=== PATIENT | male | born 2000 | race Caucasian/White ===

== ENCOUNTER → 2024-11-14 07:02 | Outpatient (REF) | payer OTHER, SELFPAY | LOC: HWRAD 07:02 | PROVIDERS: ATTENDING PHYSICIAN Nurse Practitioner Adult Health | DX: R74.8 Abnormal levels of other serum enzymes (principal) | CPT/HCPCS: 76700 ==

== ENCOUNTER → 2024-11-21 06:44 | Outpatient (REF) | payer OTHER, SELFPAY | LOC: MRI 3T 06:44 | PROVIDERS: ATTENDING PHYSICIAN Nurse Practitioner Adult Health | DX: N39.44 Nocturnal enuresis (principal); Q07.00 Arnold-Chiari syndrome without spina bifida or hydrocephalus | CPT/HCPCS: 70551; 72141 ==

== ENCOUNTER 2024-12-10 18:33 | Emergency (ER) | payer OTHER, SELFPAY ==
[2024-12-10 18:36] VITALS: BP 159/104
[2024-12-10 18:52] LABS: % Basophils 0.1 % (0-2); % Eosinophils 0.3 % (0-6); % Immature Granulocytes 0.4 % (0-0.5); % Lymphocytes 18.5 % (20.5-51.1); % Monocytes 8.1 % (1.7-9.3); % Neutrophils 72.6 % (42.2-75.2); Absolute Lymphocytes 1.3 10^3/uL (1.2-3.4); Absolute Monocytes 0.6 10^3/uL (0.1-0.6); Absolute Neutrophils 5.2 10^3/uL (1.4-6.5); Hematocrit 41.3 % (39.0-52.0); Hemoglobin 14.7 g/dL (13.0-18.0); Mean Corp Hgb Conc. 35.6 g/dL (33.0-37.0); Mean Corpuscular Hgb 33.9 pg (27.0-31.0); Mean Corpuscular Volume 95.4 fL (80.0-94.0); Mean Platelet Volume 10.9 fL (7.4-10.4); Nucleated Red Blood Cells % 0 % (-); Platelet Count 182 10^3/uL (130-400); Red Blood Cell Count 4.33 10^6/uL (4.70-6.10); Red Cell Dist. Width 12.5 % (11.5-14.5); White Blood Cell Count 7.2 10^3/uL (4.8-10.8)
[2024-12-10 19:08] LABS: ALT (SGPT) 59 U/L (0-50); AST (SGOT) 56 U/L (17-59); Albumin 5.1 g/dl (3.5-5.0); Alkaline Phosphatase 48 U/L (38-126); Blood Urea Nitrogen 14 mg/dl (9-20); Calcium 10.7 mg/dl (8.4-10.2); Carbon Dioxide 20 mmol/L (22-30); Chloride 108 mmol/L (98-107); Glucose 98 mg/dl (70-99); Potassium 4.4 mmol/L (3.5-5.1); Sodium 138 mmol/L (135-145); Total Bilirubin 1.4 mg/dl (0.2-1.3); Total Protein 7.9 g/dl (6.3-8.2); eGFR > 60.00
[2024-12-10 22:48] VITALS: BP 150/89
[2024-12-10 23:00] VITALS: BP 141/76
--- NOTE | 2024-12-10 23:18 | ED.GENMED ---
History of Present Illness
General
Chief Complaint: Blood Pressure Problem
Source: patient
Exam Limitations: none
Time Seen by Provider: 12/10/24 22:59
Nursing documentation reviewed up to this point in time: agreed with
History of Present Illness
History of Present Illness:
Note:
CHIEF COMPLAINT(S)
Shaking episode with elevated blood pressure
HISTORY OF PRESENT ILLNESS
The patient is a 24-year-old male with no pmh who presented after experiencing an episode of shaking. 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 The episode consisted of shaking that lasted approximately one
and a half hours in both of his upper extremities. The patient was conscious throughout and able to converse, though with some speech difficulty. There was noticeable yellowing of the eyes reported by a coworker. The shaking persisted into the next
day at home, albeit less severe. During the first episode, his coworkers believe it could be related to dehydration considering current heat wave and he subsequently hydrated and sat down and started to feel better. The second episode happened
while he was walking around his house. Additional symptoms included transient mild chest pain during the episode 3 days ago, but currently he is chest pain free. He also felt nauseated at the time but he did not have any loss of consciousness,
headache, vomiting. He currently is asymptomatic. He did go to work yesterday and he reports that he drank a lot of water and states that the episodes did not happen. The patient reported high blood pressure readings, ranging from 140/100 to
177/100, despite normally having no history of hypertension. He denied a history of similar episodes and was not recently anxious. He has never had to take any medications for his blood pressure. He called his primary care office who advised he go
to the emergency department.
CHRONIC MEDICAL CONDITIONS SIGNIFICANTLY AFFECTING CARE
The patient has a history of Chiari malformation, treated surgically at age [age].
SOCIAL DETERMINANTS AFFECTING HEALTH
The patient mentioned his work environment was very hot, with windows and doors open
PHYSICAL EXAM
- Nursing notes reviewed and vital signs reviewed.
General: Patient is well appearing and in no acute distress; non-toxic
Skin: Warm and dry, no rashes or lesions
Head: Normocephalic, atraumatic
Eyes: Sclera non-icteric. EOMs intact.
Cardiac: Regular rate and rhythm, no murmurs
Peripheral Vascular: No lower extremity swelling or edema
Pulm: Normal respiratory effort, no wheezes, rales, rhonchi
Neuro: CN II-XII intact, no focal neurologic deficits. 5/5 strength in bilateral upper extremities
Psychiatric: Appropriate mood and affect.
PLAN
- The patient was advised to monitor blood pressure at home 1-2 a day and maintain a log.
- Ensure adequate rest and hydration, particularly avoiding excessive heat exposure. Patient does have off of work tomorrow
- Follow-up with a primary care physician to discuss the need for long-term management of the blood pressure.
- CBC, CMP, ECG
DIFFERENTIAL DIAGNOSIS
The Differential Diagnosis includes, in no particular order and is not limited to:
- Essential tremor
- Anxiety-related tremor
- Heat-related illness
- Electrolyte imbalance
- Dehydration
- Seizure activity
CHART REVIEW
- Reviewed [facility], no prior ER physician documentation or discharge summaries to review
- Patient had surgery for a right superior labral tear on May 04, 2016
MDM/DISPOSITION
The patient is a 24-year-old male with no pmh who presented after experiencing an episode of shaking. 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 The episode consisted of shaking that lasted approximately one
and a half hours in both of his upper extremities. The patient was fully conscious during these episodes. His symptoms have been in the setting of heat exhaustion. His symptoms improved with oral hydration and rest. Doubt generalized seizure
activity as patient quickly recovered, had no obvious postictal state, triggered by heat, never lost consciousness. Case and plan reviewed with ED attending. Oral hydration was encouraged and patient will follow-up with his primary care provider in
the coming days. Suspect symptoms related to heat exhaustion versus anxiety. Did discuss with patient that his calcium was mildly elevated. In terms of his high blood pressure, patient blood work is unremarkable and he has no signs of endorgan
damage on his labs. He is currently asymptomatic. No further indicated. Patient states that he will call his primary care provider and continue to keep a log of his blood pressures. Patient stable for discharge.
Review of Systems
Review of Systems
All Other Systems: ROS reviewed and negative except as documented in HPI and ROS
Phy Exam
Physical Exam
Physical Exam:
see hpi
Course
Orders/Labs/Results
Orders:
Orders
12/10/24 18:36
Electrocardiogram (*1) Urgent
Reason for Study: Hypertension, Benign
EKG- Treatment ONCE
12/10/24 18:42
Complete Blood Count/With Diff Urgent
Comprehensive Metabolic Panel Urgent
Direct Bilirubin Urgent
Comment: ADD ON
12/10/24 23:01
Add On- LAB Urgent
Tests Added?: direct bilirubin
Abnormal Lab Results
12/10/24
18:42
RBC 4.33 L 10^6/uL
(4.70-6.10)
MCV 95.4 H fL
(80.0-94.0)
MCH 33.9 H pg
(27.0-31.0)
MPV 10.9 H fL
(7.4-10.4)
Lymphocytes % 18.5 L %
(20.5-51.1)
Chloride 108 H mmol/L
(98-107)
Carbon Dioxide 20 L mmol/L
(22-30)
Calcium 10.7 H mg/dl
(8.4-10.2)
Total Bilirubin 1.4 H mg/dl
(0.2-1.3)
Direct Bilirubin 0.5 H mg/dl
(0.0-0.4)
ALT 59 H U/L
(0-50)
Albumin 5.1 H g/dl
(3.5-5.0)
12/10/24 18:42
12/10/24 18:42
Vital Signs
Initial and Last Documented VS:
Initial Vital Signs
Temp Pulse Resp BP Pulse Ox
98.2 F 86 16 159/104 99
12/10/24 18:36 12/10/24 18:36 12/10/24 18:36 12/10/24 18:36 12/10/24 18:36
Last Documented Vital Signs
Temp Pulse Resp BP Pulse Ox
98.2 F 81 12 141/76 94
12/10/24 18:36 12/10/24 23:30 12/10/24 23:30 12/10/24 23:00 12/10/24 23:30
*Pulse Oximetry
SaO2: 99
Oxygen Mode of Delivery: Room air
Patient hypoxic: no
*Critical Care Note
Total Time (30-74mins, 75-104mins- exclusive of procedures): Not Applicable
ED Attending Note
-
Portions of this chart may have been created with voice recognition software.� Occasional wrong word or��sound alike� substitutions may have occurred due to the inherent limitations of voice recognition software.
Discharge Plan
Departure
Patient Disposition: Home (Routine Discharge)
Date of Disposition: 12/10/24
Time of Disposition: 23:37
Patient with high blood pressure during this ER visit?: Yes
Condition: Good
Discharge Problem:
Episode of shaking, High blood pressure
Instructions: BLOOD PRESSURE
Referrals:
Marry Holt CRNP [Family Provider, Internal Medicine]
Activity Restrictions/Additional Instructions:
Please have your blood work rechecked in 1-2 weeks.
Please keep a log of your blood pressure, please check once daily in the morning.
PLEASE RETURN TO THE ER SHOULD YOU DEVELOP CHEST PAIN, SHORTNESS OF BREATH, HEADACHE/NAUSEA OR VOMITING, LOSS OF CONSCIOUSNESS, OR ANY OTHER SIGNS OR SYMPTOMS WORRISOME TO YOU.
Interventions
Interventions:
*Risk Screen - Suicide Last Done: 12/10/24 18:38
*General Assessment Last Done: 12/10/24 22:39
*Neglect/Abuse Screening Last Done: 12/10/24 18:38
*ED- Fall Risk Assessment Last Done: 12/10/24 22:39
*ED COVID-19 Vaccine History Last Done: 12/10/24 22:39
*Nursing Disposition Last Done: 12/10/24 23:44
ED- Cardiac Assessment Last Done: 12/10/24 22:39
ED- Neurological Assessment Last Done: 12/10/24 22:39
ED- Pulmonary Assessment Last Done: 12/10/24 22:39
Discharge Date and Time
Discharge Date/Time: 12/10/24 23:44
Print Language: PALAUAN
[2024-12-10 23:34] LABS: Direct Bilirubin 0.5 mg/dl (0.0-0.4)
== END 2024-12-10 23:44 | disposition home or self-care (01) ==
LOC: EMR 18:33
PROVIDERS: Student in an Organized Health Care Education/Training Program; EMERGENCY PHYSICIAN Emergency Medicine; FAMILY PHYSICIAN Nurse Practitioner Adult Health
DX: R25.1 Tremor, unspecified (principal); R03.0 Elevated blood-pressure reading, without diagnosis of hypertension
CPT/HCPCS: 99284; 80053; 82248; 85025; 93005

== ENCOUNTER 2025-02-07 10:14 | Emergency (ER) | payer OTHER, SELFPAY ==
[2025-02-07] VITALS (7 sets, daily range): BP systolic 143–181; BP diastolic 91–119; BMI 26.6
--- NOTE | 2025-02-07 10:52 | ED.MUSCINJ ---
HPI-Injury
General
Chief Complaint: Fall
Time Seen by Provider: 02/07/25 10:25
History of Present Illness-Injury
Initial Injury comments:
24-year-old male with no reported chronic medical problems here today after he sustained a mechanical fall down 1 step 2 days ago. He landed on his left lateral side. He has since had associated pain. Pain is worse with movement and improved with
rest. He also endorses worsening pain with coughing and sneezing. No shortness of breath. No coughing up blood. No vomiting. No other acute complaints.
Review of Systems
Review of Systems
All Other Systems: ROS reviewed and negative except as documented in HPI and ROS
Phy Exam
Physical Exam
Physical Exam:
GENERAL: Alert , in no apparent distress
EYE: normal conjunctiva
NECK: Supple
ENT: o/p clr, mmm.
CARDIAC: Regular rate and rhythm .
LUNGS: Clear breath sounds bilaterally, no acute respiratory distress, no wheezes/rales/rhonchi
ABDOMEN: Soft, without focal tenderness, no r/g, no cvat
NEUROLOGICAL: Alert and oriented, no focal neuro deficits
SKIN: Warm and dry, skin intact.
MUSCULOSKELETAL: No edema, well perfused. Tenderness to palpation along the left lateral middle side
PSYCH: Normal and appropriate interaction.
Injury Course
Orders/Labs/Results
Orders:
Orders
02/07/25 10:22
Ribs, Left 3 View W/PA Chest CR [CR Ribs-left 3 Vw W/pa Chest] Urgent
Comment:
Reason For Exam: fell Tuesday c/o pain on left side and sob
02/07/25 10:51
Ketorolac [Toradol] 15 mg IM NOW STA
02/07/25 10:52
Lidocaine [Lidocaine 4% Patch] 1 patch TOPICAL ONCE ONE
Apply Lidocaine patch(s) to:: left lateral side
02/07/25 12:27
CT Abd/pelvis W Iv Cont Urgent
Comment:
Reason For Exam: left rib pain, rib fx, luq abd pain
02/07/25 12:34
Complete Blood Count/With Diff Urgent
Comprehensive Metabolic Panel Urgent
Abnormal Lab Results
02/07/25
12:34
RBC 4.53 L 10^6/uL
(4.70-6.10)
MCV 95.8 H fL
(80.0-94.0)
MCH 33.8 H pg
(27.0-31.0)
MPV 10.5 H fL
(7.4-10.4)
Absolute Lymphs (auto) 0.9 L 10^3/uL
(1.2-3.4)
Neutrophils % 79.1 H %
(42.2-75.2)
Lymphocytes % 11.9 L %
(20.5-51.1)
Sodium 134 L mmol/L
(135-145)
Total Bilirubin 2.3 H mg/dl
(0.2-1.3)
Albumin 5.1 H g/dl
(3.5-5.0)
02/07/25 12:34
02/07/25 12:34
MDM/Problems Addressed
Differential Diagnosis Includes:
24-year-old male with no reported chronic medical problems here today after he sustained a mechanical fall. Overall, patient well-appearing. On examination he has tenderness to palpation along the left lateral middle side. No deformities. No
ecchymosis. There is symmetric chest wall expansion. He has a normal cardiopulmonary examination with clear lungs throughout. Abdomen soft and nontender. No ecchymosis or skin changes. Will begin with x-rays of the left ribs. Will also provide
Toradol and lidocaine patch.
02/07/2025 15:41: Chest x-ray reveals a nondisplaced left 9th and 10th rib fracture. No pleural effusion or pneumothorax. Patient reassessed and noted improvement in pain however still reported slight abdominal pain. Shared decision-making was
used. A decision was made to obtain a CT scan of the abdomen and pelvis to assess for visceral injury which is negative. There is incidental findings of hepatomegaly and fatty liver which patient was made aware of. We discussed supportive
measures and will prescribe ibuprofen and topical lidocaine patches and recommend close follow-up. We discussed incentive spirometer use. Patient also made aware of his elevated blood pressure and recommended to monitor this and have this
rechecked. All questions answered. Stable for discharge.
*Pulse Oximetry
SaO2: 98
Oxygen Mode of Delivery: Room air
Patient hypoxic: no
*Critical Care Note
Total Time (30-74mins, 75-104mins- exclusive of procedures): Not Applicable
ED Attending Note
-
Portions of this chart may have been created with voice recognition software.� Occasional wrong word or��sound alike� substitutions may have occurred due to the inherent limitations of voice recognition software.
Discharge Plan
Departure
Patient Disposition: Home (Routine Discharge)
Date of Disposition: 02/07/25
Time of Disposition: 15:34
Patient with high blood pressure during this ER visit?: Yes
Condition: Fair
Discharge Problem:
Left rib fracture
Instructions: Rib fracture or bruised rib - ED (DC)
Prescriptions:
New
ibuprofen 600 mg tablet
600 mg PO Q6H PRN (Reason: Pain) 5 Days Qty: 20 0RF
lidocaine 5 % adhesive patch,medicated
1 patch topical DAILY PRN (Reason: pain) 7 Days Qty: 15 0RF
Referrals:
Marry Holt CRNP [Family Provider, Internal Medicine] - Follow up in 5-7 days
Stand Alone Forms: Return to Work
Activity Restrictions/Additional Instructions:
Your imaging reveals findings of likely 2 rib fractures along the left 9th and 10th ribs.
Rest. Avoid heavy lifting. Take the prescribed ibuprofen and use the topical lidocaine patches as directed.
Apply ice to the area 20 minutes on 20 minutes off.
Follow-up with your doctor within the next 3 to 5 days.
Return for any new, worsening, or concerning symptoms.
Interventions
Interventions:
*Risk Screen - Suicide Last Done: 02/07/25 10:19
*General Assessment Last Done: 02/07/25 10:42
*Neglect/Abuse Screening Last Done: 02/07/25 10:19
*ED- Fall Risk Assessment Last Done: 02/07/25 10:42
*ED COVID-19 Vaccine History Last Done: 02/07/25 10:42
ED-Musculoskeletal Assessment Last Done: 02/07/25 10:42
ED- Neurological Assessment Last Done: 02/07/25 10:42
ED-Skin Assessment Last Done: 02/07/25 10:42
Discharge Date and Time
Print Language: SAUDI ARABIAN
[2025-02-07] MEDS: TORADOL 15 MG IM (11:00)
[2025-02-07] MEDS: LIDOCAINE 4% PATCH 1 PATCH TOPICAL (11:00)
[2025-02-07 12:49] LABS: Hematocrit 43.4 % (39.0-52.0); Hemoglobin 15.3 g/dL (13.0-18.0); Mean Corp Hgb Conc. 35.3 g/dL (33.0-37.0); Mean Corpuscular Volume 95.8 fL (80.0-94.0); Nucleated Red Blood Cells % 0 % (-); Platelet Count 224 10^3/uL (130-400); Red Cell Dist. Width 12.6 % (11.5-14.5)
[2025-02-07 13:05] LABS: ALT (SGPT) 49 U/L (0-50); AST (SGOT) 54 U/L (17-59); Albumin 5.1 g/dl (3.5-5.0); Alkaline Phosphatase 54 U/L (38-126); Blood Urea Nitrogen 10 mg/dl (9-20); Calcium 10.1 mg/dl (8.4-10.2); Carbon Dioxide 24 mmol/L (22-30); Chloride 100 mmol/L (98-107); Estimated Creatinine Clearance > 125 ml/min; Glucose 81 mg/dl (70-99); Potassium 4.3 mmol/L (3.5-5.1); Sodium 134 mmol/L (135-145); Total Protein 7.7 g/dl (6.3-8.2); eGFR > 60.00
== END 2025-02-07 15:45 | disposition home or self-care (01) ==
LOC: EMR 10:14
PROVIDERS: Physician Assistant; EMERGENCY PHYSICIAN Emergency Medicine; FAMILY PHYSICIAN Nurse Practitioner Adult Health
DX: S22.42XA Multiple fractures of ribs, left side, initial encounter for closed fracture (principal); R03.0 Elevated blood-pressure reading, without diagnosis of hypertension; K76.0 Fatty (change of) liver, not elsewhere classified; W10.9XXA Fall (on) (from) unspecified stairs and steps, initial encounter
CPT/HCPCS: 99284; 96372; 71101; 74177; 80053; 85025; Q9967